=== PATIENT | female | born 2000 | race Caucasian/White ===

== ENCOUNTER 2022-07-16 23:54 | Inpatient (IN) | payer BC, OTHER ==
[~2022-07-16] VITALS: Ht 172.7 cm; Wt 106.6 kg
[2022-07-17 00:05] VITALS: BP 160/100
--- NOTE | 2022-07-17 00:08 | NUR ---
TO LOBBY, A/W BED AMBULATORY
--- NOTE | 2022-07-17 03:36 | NUR ---
PT TAKEN TO BED 9
--- NOTE | 2022-07-17 03:41 | NUR ---
pt is has low grade fever compalining about the headache, nausea and vomiting, dirarhhea. pt is alert and oriented x 4.
[2022-07-17] MEDS ORDERED: ACETAMINOPHEN EXTRA STRENGTH 500 MG TAB PO ONE (04:25)
[2022-07-17] MEDS ORDERED: NACL 0.9% 2,000 ML IV ONE (04:25)
--- NOTE | 2022-07-17 04:29 | NUR ---
X-Ray at bedside.
--- NOTE | 2022-07-17 05:05 | NUR ---
Dr. Otoole examining patient.
[2022-07-17] MEDS ORDERED: MORPHINE SULFATE 2 MG/ML SYR IVP STA (05:06)
[2022-07-17 05:37] LABS: BASOPHILS % (AUTO) 0.4 % (0.0-2.0); HEMATOCRIT 42.6 % (36-48); HEMOGLOBIN 14.7 g/dL (12.0-16.0); LYMPHOCYTES # (AUTO) 1.1 K/uL (2.5-16.5); MEAN CORPUSCULAR HEMOGLOBIN 29 pg (27-31); MEAN CORPUSCULAR HGB CONC 35 g/dL (33-37); MEAN CORPUSCULAR VOLUME 84.7 fL (80-94); MONOCYTES # (AUTO) 0.4 K/uL (0.8-1.0); MONOCYTES % (AUTO) 4.2 % (1.7-9.3); NEUTROPHILS # (AUTO) 9.1 K/uL (1.8-7.7); NEUTROPHILS % (AUTO) 85.4 % (42.2-75.2); PLATELET COUNT (AUTO) 316 K/uL (140-450); RED BLOOD CELL COUNT(AUTO) 5.03 MIL/uL (4.20-5.40); RED CELL DISTRIBUTION WIDTH 13.3 % (11.6-13.7); WHITE BLOOD COUNT (AUTO) 10.6 K/uL (4.8-10.8)
[2022-07-17 06:06] LABS: ALBUMIN 4.1 g/dL (3.4-5.0); ANION GAP 15.5 (8-16); CARBON DIOXIDE 25.1 mmol/L (21-32); CREATININE 0.9 mg/dL (0.6-1.3); POTASSIUM 3.6 mmol/L (3.5-5.1); TOTAL BILIRUBIN 0.5 mg/dL (0.0-1.0)
[2022-07-17] MEDS ORDERED: NACL 0.9% 1,000 ML IV ONE ×2 (06:40→09:35)
[2022-07-17 07:41] LABS: APPEARANCE,URINE CLEAR (CLEAR); BILIRUBIN,URINE NEGATIVE (NEGATIVE); BLOOD, URINE NEGATIVE (NEGATIVE); COLOR,URINE YELLOW (YELLOW); LEUKOCYTE ESTERASE ,URINE NEGATIVE (NEGATIVE); NITRITE, URINE NEGATIVE (NEGATIVE); UGLUCOSE NEGATIVE (NEGATIVE)
[2022-07-17] MEDS ORDERED: MORPHINE SULFATE 2 MG/ML SYR IVP PRN (09:45)
--- NOTE | 2022-07-17 09:45 | NUR ---
c/o 8/10 back pain.
--- NOTE | 2022-07-17 12:37 | NUR ---
Per patient. takes no medication. Med rec complete.
--- NOTE | 2022-07-17 14:22 | NUR ---
Patient is laying in bed, respirations even and unlabored. All needs met by staff.
[2022-07-17] MEDS: NACL 0.9% 1,000 ML IV SCH ×2 (15:19→21:43)
--- NOTE | 2022-07-17 16:44 | NUR ---
Patient ambulated to restroom with steady gait.
--- NOTE | 2022-07-17 17:20 | NUR ---
Patient was offered dinner tray.
--- NOTE | 2022-07-17 17:39 | NUR ---
Patient had an episode of vomiting. Patient was made clean and dry.
--- NOTE | 2022-07-17 19:54 | NUR ---
Report given to SAMPSON Head for transfer of care.
--- NOTE | 2022-07-17 20:27 | NUR ---
Report given to SAMPSON Mace. Pt aware and agreeable to admission. HR 132. Pt to be transported via gurney with all belongings.
--- NOTE | 2022-07-17 20:50 | NUR ---
ADMITTED THIS PT FROM ER PER DILAN WITH CC OF FEVER, DIARRHEA AND BODY ACHES X3 DAYS, AMBULATED TO BED WITH STEADY GAIT, AAXO4, COMPLAINING OF ABDOMINAL PAIN RADIATING TO BACK AND NAUSEA BUT NO VOMITING, VITAL SIGNS TAKEN, TEMP-102.1, ST WITH 126 HR, BP STABLE, WILL PAGED FIELD CROP FARMWORKER DR BAIRES FOR PRN MEDS, IVF OF NS AT 125 ML CONTINUED, COOLING MEASURES STARTED, ALL NEEDS ATTENDED, CALL LIGHT WITHIN REACH.
[2022-07-17 21:00] VITALS: BP 145/76
[2022-07-17] MEDS ORDERED: PIPERACILLIN/TAZOBACTAM 3.375 GM in DEXTROSE 5% 50 ML IV SCH (21:20)
[2022-07-17] MEDS ORDERED: ONDANSETRON 4 MG/2 ML VIAL IVP PRN (21:20)
[2022-07-17] MEDS ORDERED: ACETAMINOPHEN EXTRA STRENGTH 500 MG TAB PO PRN (21:20)
[2022-07-17] MEDS: LOPERAMIDE 2 MG CAP PO PRN (21:22)
[2022-07-17] MEDS ORDERED: PIPERACILLIN/TAZOBACTAM 3.375 GM VIAL IV ONE (21:44)
[2022-07-17] MEDS: HYDROcodone/APAP 5/325 MG 1 TAB TAB PO PRN (21:52)
[2022-07-18] VITALS: BP 104/49
--- NOTE | 2022-07-18 02:03 | NUR ---
PT AMBULATED TO BR, HAD WATERY STOOL, DENIES ANY PAIN, APPLE JUICE PROVIDED, TOLERATED WELL, IVF INFUSING WELL, CONTINUE TO MONITOR CLOSELY.
[2022-07-18] MEDS: LOPERAMIDE 2 MG CAP PO PRN (03:56)
[2022-07-18] MEDS: HYDROcodone/APAP 5/325 MG 1 TAB TAB PO PRN (03:56)
--- NOTE | 2022-07-18 03:56 | NUR ---
PT SEEN COMING OUT OF TOILET, STATED HAD ANOTHER WATERY STOOL, VITAL SIGNS TAKEN, ORAL TEMP 102.6, ST WITH HR 124 BPM, COMPLAINING OF ABDOMINAL PAIN, MEDICATED PRN WITH NORCO AND IMODIUM, APPLE JUICE PROVIDED, TOLERATED WELL, MONITORED CLOSELY.
[2022-07-18 04:00] VITALS: BP 142/83
[2022-07-18] MEDS: NACL 0.9% 1,000 ML IV SCH ×2 (04:07→11:10)
[2022-07-18] MEDS ORDERED: PIPERACILLIN/TAZOBACTAM 3.375 GM VIAL IV ONE (04:13)
[2022-07-18] MEDS: PIPERACILLIN/TAZOBACTAM 3.375 GM in DEXTROSE 5% 50 ML IV SCH ×3 (04:21→20:03)
--- NOTE | 2022-07-18 06:10 | NUR ---
PT SLEEPING, EASILY AROUSABLE, ORAL TEMP RECHECKED-98.9, HR 102 BPM, DENIES ANY PAIN, IVF INFUSING WELL, MONITORED CLOSELY.
--- NOTE | 2022-07-18 07:25 | NUR ---
PT AWAKE, NO SIGNS OF DISTRESS, REPORT GIVEN TO RN CRUZ FOR CONTINUITY OF CARE.
--- NOTE | 2022-07-18 07:28 | NUR ---
RECEIVED PATIENT FROM TRAVELING CONSTRUCTION SUPERINTENDENT NURSE.PATIENT ALERT AND ORIENTED.VERBALLY RESPONSES. NO OTHER DISTRESS NOTED. CALL LIGHT WITHIN REACH.ALL SAFETY MEASURES IN PLACE.WILL CONTINUE TO MONITOR.
[2022-07-18 08:30] LABS: ANION GAP 10.7 (8-16); CARBON DIOXIDE 24.7 mmol/L (21-32); CREATININE 0.8 mg/dL (0.6-1.3); POTASSIUM 3.4 mmol/L (3.5-5.1)
[2022-07-18 09:04] LABS: BASOPHILS % (AUTO) 0.2 % (0.0-2.0); HEMOGLOBIN 12.7 g/dL (12.0-16.0); LYMPHOCYTES # (AUTO) 1.3 K/uL (2.5-16.5); LYMPHOCYTES % (AUTO) 16.4 % (20.5-51.1); MEAN CORPUSCULAR HEMOGLOBIN 29 pg (27-31); MEAN CORPUSCULAR HGB CONC 33 g/dL (33-37); MEAN CORPUSCULAR VOLUME 86.5 fL (80-94); MONOCYTES # (AUTO) 0.4 K/uL (0.8-1.0); MONOCYTES % (AUTO) 4.7 % (1.7-9.3); NEUTROPHILS # (AUTO) 6.2 K/uL (1.8-7.7); NEUTROPHILS % (AUTO) 78.7 % (42.2-75.2); PLATELET COUNT (AUTO) 233 K/uL (140-450); RED BLOOD CELL COUNT(AUTO) 4.39 MIL/uL (4.20-5.40); RED CELL DISTRIBUTION WIDTH 13.3 % (11.6-13.7); WHITE BLOOD COUNT (AUTO) 7.9 K/uL (4.8-10.8)
--- NOTE | 2022-07-18 09:25 | NUR ---
PATIENT HAS BEEN SCREENED AND CATEGORIZED HIGH NUTRITION RISK. PATIENT WILL BE SEEN WITHIN 1-2 DAYS OF ADMISSION. RECEIVED REFERRAL FOR "DIARRHEA > 3 DAYS" ON 07/18/22. REVIEWED BY ROMIE SERRANO RD
[2022-07-18] MEDS ORDERED: ACETAMINOPHEN 325 MG TAB PO PRN (10:40)
[2022-07-18] MEDS ORDERED: HYDROcodone/APAP 7.5/325 MG 1 TAB PO PRN (10:40)
[2022-07-18] MEDS ORDERED: POTASSIUM CHLORIDE 10 MEQ TABER PO PRN (10:40)
[2022-07-18] MEDS ORDERED: MAG SULF 2000 MG/WATER PREMIX 50 ML IV PRN (10:40)
[2022-07-18] MEDS ORDERED: ONDANSETRON 4 MG/2 ML VIAL IVP PRN (10:40)
[2022-07-18 11:30] LABS: PROTHROMBIN TIME 11.1 secs (10.8-13.4)
[2022-07-18 12:00] VITALS: BP 151/99
[2022-07-18 12:19] LABS: AMYLASE 36 U/L (25-115); FREE T4 (FREE THYROXINE) 1.74 ng/dL (0.76-1.46); HDL CHOLESTEROL 35 mg/dL (40-60); LDL (CALC) 112 mg/dL (60-100); LIPASE 143 U/L (73-393); MAGNESIUM 1.9 mg/dL (1.8-2.4); PHOSPHORUS 2.6 mg/dL (2.5-4.9); THYROID STIMULATING HORMONE 0.33 uIU/mL (0.34-3.74); TRIGLYCERIDES 140 mg/dL (30-150)
[2022-07-18 16:00] VITALS: BP 144/92
--- NOTE | 2022-07-18 16:23 | NUR ---
07/18/22 RD INITIAL ASSESSMENT COMPLETED PLEASE REFER TO NUTRITION ASSESSMENT UNDER CARE ACTIVITY FOR ESTIMATED NUTRITIONAL NEEDS. 1. CONTINUE BLAND DIET TOLERATED 2. RECOMMEND BANATROL TID FOR DIARRHEA UNTIL SYMPTOMS RESOLVED 3. RECOMMEND ENSURE BID -PROVIDES 700 KCAL AND 40 GM PROTEIN DAILY 4. MONITOR PO INTAKE AND GI SYMPTOMS 5. RD TO FOLLOW-UP 3-5 DAYS, MODERATE RISK REVIEWED BY ROMIE SERRANO RD
[2022-07-18] MEDS: MORPHINE SULFATE 2 MG/ML SYR IVP PRN ×2 (16:50→22:40)
--- NOTE | 2022-07-18 17:29 | NUR ---
PATIENT OFF THE UNIT FOR CT ANGIO WITH CONTRAST. CONSENT SIGNED, PROCEDURE EXPLAINED. COMPLAINS OF BACK PAIN NOTED .MEDICATED WITH PRN PAIN MED.
--- NOTE | 2022-07-18 18:00 | NUR ---
PATIENT CAME BACK FROM CT, NO OTHER SIGNS OF DISTRESS NOTED.VS BP 144/92, HR 96, RR18, O2 99%.
--- NOTE | 2022-07-18 19:30 | NUR ---
RECEIVED REPORT FROM DAY SHIFT NURSE CRUZ FOR CONTINUITY OF CARE. PATIENT IS A&O X4. PATIENT IS ON ROOM AIR, BREATHING IS NORMAL WITH SYMMETRICAL RISE AND FALL OF CHEST. IV IS A 22G L ARM, RUNNING NS AT 50. PATIENT IS AWAKE, SITTING IN HIGH-FOWLERS POSITION, VISITING WITH AT BEDSIDE. PATIENT'S MOOD IS OF A POSITIVE DEMEANOR. BED IS IN LOWEST POSITION, WHEELS LOCKED, CALL LIGHT IN PLACE. WILL CONTINUE TO OBSERVE PATIENT.
--- NOTE | 2022-07-18 19:30 | NUR ---
endorsed patient to maintenance supervisor 2nd shift nurse for continuity of care.
[2022-07-18 20:00] VITALS: BP 134/77
[2022-07-18] MEDS: DOCUSATE SODIUM 100 MG GELCAP PO SCH (20:04)
[2022-07-18 21:41] LABS: APPEARANCE,URINE CLEAR (CLEAR); BILIRUBIN,URINE NEGATIVE (NEGATIVE); BLOOD, URINE NEGATIVE (NEGATIVE); COLOR,URINE YELLOW (YELLOW); LEUKOCYTE ESTERASE ,URINE NEGATIVE (NEGATIVE); NITRITE, URINE NEGATIVE (NEGATIVE); PH,URINE 6.5 (5.0-9.0); UGLUCOSE NEGATIVE (NEGATIVE)
[2022-07-18 21:59] LABS: BARBITURATE, URINE NEGATIVE ng/ml (NEG <=200); BENZODIAZEPINE, URINE NEGATIVE ng/mL (NEG <=200); CANNABINOID, URINE NEGATIVE ng/mL (NEG <=50); COCAINE, URINE NEGATIVE ng/mL (NEG <=300); OPIATE, URINE POSITIVE ng/mL (NEG <=2000); PHENCYCLIDINE SCREEN,URINE NEGATIVE ng/mL (NEG <=25)
--- NOTE | 2022-07-18 23:00 | NUR ---
PATIENT CALLED REQUESTING MORPHINE FOR BACK PAIN. CHECKED PATIENT'S VITALS AND CHART. MORPHINE WAS APPROPRIATE TO ADMINISTER. ADMINISTERED MEDICATION TO PATIENT. PATIENT TOLERATED WELL. BREATHING IS NORMAL WITH SYMMETRICAL RISE AND FALL OF CHEST. WILL CONTINUE TO OBSERVE PATIENT.
--- NOTE | 2022-07-18 23:30 | NUR ---
EKG WAS DONE ON PATIENT, ORDERED BY DR BAIRES EARLIER IN THE DAY; AND TO BE READ BY DR. JEAN. RESULTS PENDING.
[2022-07-19] VITALS: BP 120/66
[2022-07-19 04:00] VITALS: BP 121/77
[2022-07-19] MEDS: PIPERACILLIN/TAZOBACTAM 3.375 GM in DEXTROSE 5% 50 ML IV SCH ×2 (04:02→13:26)
--- NOTE | 2022-07-19 04:19 | NUR ---
PATIENT SLEPT THROUGHOUT THE NIGHT. PATIENT CALLED AT 0400 AND REQUESTED NURSE; PATIENT HAD VOIDED IN THE BED. BED WAS STRIPPED AND NEW BEDDING WAS APPLIED. PATIENT WENT INTO BATHROOM TO CLEAN HERSELF UP. 0500 ZOSYN WAS ADMINISTERED; IVPB WAS STARTED SUCCESSFULLY WITHOUT ANY ISSUES. PATIENT IS NOW LYING BACK IN BED, RESTING. BREATHING IS NORMAL WITH SYMMETRICAL RISE AND FALL OF CHEST. WILL CONTINUE TO OBSERVE PATIENT.
[2022-07-19 06:17] LABS: BASOPHILS % (AUTO) 0.3 % (0.0-2.0); EOSINOPHILS # (AUTO) 0.1 K/uL (0-0.4); EOSINOPHILS % (AUTO) 1.3 % (0.0-4.0); HEMATOCRIT 38.4 % (36-48); HEMOGLOBIN 12.8 g/dL (12.0-16.0); LYMPHOCYTES # (AUTO) 1.5 K/uL (2.5-16.5); LYMPHOCYTES % (AUTO) 25.2 % (20.5-51.1); MEAN CORPUSCULAR HEMOGLOBIN 29 pg (27-31); MEAN CORPUSCULAR HGB CONC 33 g/dL (33-37); MEAN CORPUSCULAR VOLUME 86.5 fL (80-94); MONOCYTES # (AUTO) 0.6 K/uL (0.8-1.0); MONOCYTES % (AUTO) 10.1 % (1.7-9.3); NEUTROPHILS # (AUTO) 3.8 K/uL (1.8-7.7); NEUTROPHILS % (AUTO) 63.1 % (42.2-75.2); PLATELET COUNT (AUTO) 224 K/uL (140-450); RED BLOOD CELL COUNT(AUTO) 4.44 MIL/uL (4.20-5.40); RED CELL DISTRIBUTION WIDTH 13.3 % (11.6-13.7); WHITE BLOOD COUNT (AUTO) 6.1 K/uL (4.8-10.8)
[2022-07-19] MEDS: NACL 0.9% 1,000 ML IV SCH (06:40)
[2022-07-19 06:42] LABS: ANION GAP 9.5 (8-16); CREATININE 0.6 mg/dL (0.6-1.3); POTASSIUM 3.5 mmol/L (3.5-5.1)
[2022-07-19 06:50] LABS: MAGNESIUM 1.9 mg/dL (1.8-2.4); PHOSPHORUS 2.4 mg/dL (2.5-4.9)
--- NOTE | 2022-07-19 07:20 | NUR ---
GI DR. DAWSON CALLED AND ASKED TO SPEAK WITH PATIENT. GAVE PHONE TO PATIENT AND PATIENT SPOKE WITH MD. AFTERWARDS MD TOLD ME TO HAVE THE DAY SHIFT NURSE GIVE HIM A CALL WHEN THE BLOOD OCCULT STOOL IS IN AND HE'LL DECIDE WHAT TO DO FROM THERE. INFORMED DAY SHIFT NURSE SRUTHY OF THIS.
--- NOTE | 2022-07-19 07:22 | NUR ---
RECEIVED PATIENT FROM TRANSPORT OPERATIONS INSPECTOR NURSE.PATIENT VERBALLY RESPONSES.ALL SAFETY MEASURES IN PLACE. VS STABLE. ALL NIGHT REPORTS ENDORSED.WILL CONTINUE TO MONITOR.
--- NOTE | 2022-07-19 07:28 | NUR ---
ENDORSED TO DAY SHIFT NURSE UTHY FOR CONTINUITY OF CARE. PATIENT IS STABLE.
[2022-07-19 08:00] VITALS: BP 134/84
[2022-07-19] MEDS ORDERED: LACTOBACILLUS RHAMNOSUS GG 1 EACH CAP PO SCH (09:00)
[2022-07-19] MEDS ORDERED: PANTOPRAZOLE 40 MG INJ VIAL IVP SCH (09:00)
[2022-07-19] MEDS: DOCUSATE SODIUM 100 MG GELCAP PO SCH (09:20)
[2022-07-19] MEDS ORDERED: LACT10CA PO (10:34)
[2022-07-19] MEDS ORDERED: METR-520 PO (10:34)
[2022-07-19 11:45] VITALS: BP 134/84
[2022-07-19 12:00] VITALS: BP 134/98
--- NOTE | 2022-07-19 12:29 | NUR ---
FREQUENT ROUNDS DONE. PATIENT COMPLAINS OF HEADACHE. MEDICATED WITH PRN PAIN MED.NO OTHER SIGNS OF DISTRESS NOTED.RECEIVED DISCHARGE ORDER. WAITING FOR THE FAMILY TO PICK HER UP AT 4 PM.
--- NOTE | 2022-07-19 14:16 | NUR ---
DISCHARGED THE PATIENT HOME.ALL DISCHARGE INSTRUCTIONS GIVEN.REMOVED ID BANDS, TELEMONITOR REMOVED.IV REMOVED.DISCHARGE MEDICINES EXPLAINED.
== END 2022-07-19 14:10 | disposition home or self-care (01) | DRG 872 ==
LOC: MED 23:54 → MTU 07-17 12:55
PROVIDERS: ADMIT Family Medicine; ATTEND Family Medicine
DX: A41.9 Sepsis, unspecified organism (principal); A09 Infectious gastroenteritis and colitis, unspecified; M79.10 Myalgia, unspecified site; E87.6 Hypokalemia; E83.51 Hypocalcemia; R03.0 Elevated blood-pressure reading, without diagnosis of hypertension; Z20.822 Contact with and (suspected) exposure to COVID-19; K76.0 Fatty (change of) liver, not elsewhere classified; Z88.8 Allergy status to other drugs, medicaments and biological substances
CPT/HCPCS: 36415; 71045; 74160; 80048; 80053; 80305; 81003; 82140; 82150; 82272; 83036; 83605; 83690; 83735; 83880; 84100; 84439; 84443; 84484; 85025; 85610; 85730; 87040; 87081; 87086; 93005; 96361; 96374; 96376; 99285; C9113; J2270; J2405; J2543; J7060; Q0092; Q9967